=== PATIENT | female | born 1945 | race Caucasian/White ===

== ENCOUNTER 2017-08-23 15:43 | Emergency (ER) | payer MEDICARE ==
[~2017-08-23] VITALS: Ht 162.6 cm; Wt 86.2 kg
[~2017-08-23 15:43] MED LIST: ASPIRIN 81MG TA81 MG PO; BACTRIM DS 8001 TAB PO; ENABLEX7.5 MG OR; HYDROCHLOROTH12.5 M1 PO; LIPITOR10 MG PO; LORTAB 5/500 501 TAB PO; METFORMIN500 MG PO; PHENERGAN 25MG.25 M1 PO; VITAMIN C500 M1 PO
--- OUTSIDE RECORDS SUMMARY | 2017-08-23 15:47 | External Medical Summary Rpt | CCD ---
Author Author , DISHA GAUTHIER Address Unknown Phone [email or web address] Purpose Continuity of Care Document - through 2016 Problems Code Diagnosis DOS Provider Status E03.9 HYPOTHYROID ISM, UNSPECIFIED E11.9 TYPE 2 DIABETES MELLITUS WITHOUT COMPLICATIO NS
--- OUTSIDE RECORDS SUMMARY | 2017-08-23 15:47 | External Medical Summary Rpt | CCD ---
Demographics Preferred Language Icelandic Marital Status Unknown Yarsanism Affiliation Unknown Race Unknown Ethnic Group Unknown Author Author , DISHA GAUTHIER Address Unknown Phone [email or web address] Immunization Name Date Rout CVX Reac Dose Comm Prov Is Faci e tion ent ider Refu lity Give sed n Td 02-0 9 999 Hist H112 No H112 (venkat 1-19 ori lt), 99 al Info adso rmat rbed ion - Sour ce Unsp ecif ied
--- OUTSIDE RECORDS SUMMARY | 2017-08-23 15:47 | External Medical Summary Rpt | CCD ---
Author Author [facility] Organization [employer] Address Unknown Phone Unavailable Purpose Continuity of Care Document - through 2016
--- OUTSIDE RECORDS SUMMARY | 2017-08-23 15:47 | External Medical Summary Rpt | CCD ---
Author Author , DISHA GAUTHIER Address Unknown Phone .[employer] Purpose Continuity of Care Document - through 2016 Problems Code Diagnosis DOS Provider Status E03.9 HYPOTHYROID ISM, UNSPECIFIED E11.9 TYPE 2 DIABETES MELLITUS WITHOUT COMPLICATIO NS
--- OUTSIDE RECORDS SUMMARY | 2017-08-23 15:47 | External Medical Summary Rpt | CCD ---
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
--- NOTE | 2017-08-23 17:28 | Urgent Treatment Center Report ---
History of Present Issue Date/Time Seen by Provider 08/23/17 1728 Visit Reason Pt arrived:Walked Presenting Problem:PT C/O HEAD CONGESTION AND COUGH X1 WEEK Location if Accident: Onset of symptoms date/time:/ or onset unknown for:MEDICAL HX UNKNOWN Have you (or family members/close friends) recently traveled outside the [place]? N If Yes, where/when: Have you had exposure to infectious disease within the past month? TB? Other? Specify: Here w/ daughter who reports she is a [employer]ER. Cough x 2 weeks. Worse last 3-4 days. Nonprod, worse with deep breath but not exertion. No SOA, wheezing. Hx HTN but BP not monitored at home "hasn't been a reason too". No fever. Mucinex and OTC decongestants haven't helped. No known sick contacts. Would like to stay away from [facility] due to cost and has taken zpack without symptoms and does well daughter and pt both report. Source patient, family Exam Limitations no limitations ALLERGIES Coded Allergies: No Known Allergies (08/23/17) Home Medications Reported Medications Atorvastatin Calcium (Lipitor 10MG) 10 MG PO QHS Metformin HCL (Metformin) 500 MG PO DAILY Hydrochlorothiazide (Hydrochlorothiazide 12.5MG) 12.5 MG PO DAILY Darifenacin Hydrobromide (Enablex) ASPIRIN (Aspirin) 81 MG PO DAILY Ascorbic Acid (Vitamin C) 500 MG PO DAILY History Medical History General CAD? No Angina: No AR: No Hypertension? Yes Hyperlipidemia? Yes CHF? No DVT? No PE? No COPD? No Asthma? No Anemia? No GERD? No Gastric ulcers? No GI Bleed? No Hernia? No Thyroid Problems? No Hypothyroidism? No CVA? No Seizures? No Diabetes? Yes Insulin Dependent: No Insulin Pump: No Home FSBS? Yes Renal Insuffiency? No UTI? No Stones? No BPH? No GB Disease: No Nephritic Syndrome? No Asplenia? No Hepatitis? No Sickle Cell Disease? No Arthritis? No Migraines? No Cataracts? No Glaucoma? No MRSA? No HIV? No TB? No Anxiety? No Depression? No Cancer? No More? No Immunization HX DT/Tetanus 5-10 YRS Flu NEVER Pneumonia NEVER Surgical Hx Previous Surgery?Y CARDIAC STENT X 1 APPY Family History Family HX Diabetes Yes CAD No Hypertension Yes Hyperlipidemia Yes Cancer Yes TB No Social History Smoking Hx Smoker: Never Smoker Tobacco: No Alcohol Alcohol: No Review of Systems All Other Systems Reviewed and Negative Constitutional see HPI, denies chills, denies malaise Eyes denies drainage ENT nose discharge. denies: ear pain, nose congestion, throat pain. Respiratory see HPI Cardiovascular denies chest pain Gastrointestinal denies no symptoms reported Musculoskeletal denies joint pain Skin denies rash Psychiatric/Neurological denies headache Physical Exam Vital Signs Vital Signs Date Time Temp Pulse Resp B/P Pulse O2 O2 Flow FiO2 Ox Delivery Rate 08/23 1623 98.8 77 18 170/103 98 General Appearance no apparent distress, obese Ear, Nose, Throat normal pharynx, clear rhinorrhea ridge, ridge EAC w/ cerumen, sister plans to irrigate at home (no symptoms) Neck non-tender, supple Respiratory Status Yes: trachea midline, chest symmetrical, non productive cough. No: respiratory distress, use of accessory muscles, pain on inspiration, pain on expiration. Lung Sounds anterior: lungs clear. posterior: lungs clear. bilateral: lungs clear. Cardiovascular regular rate/rhythm, no peripheral edema, no murmur Neurologic alert Mental status normal mood/affect Lymphatic no adenopathy Medical Decision Making LABS/Meds/Orders Pt receiving controlled substance in ED? No Departure Departure Time of Disposition 1735 Disposition DC Home or Self Care(routine) Clinical Impression Primary Impression: Cough Secondary Impressions: High blood pressure Qualifiers: Hypertension type: unspecified Qualified Code: I10 - Essential ( primary) hypertension Condition STABLE Referrals Mike TIM,Luis Hernandes (Family) IMMEDIATELY for new or worsening symptoms, no noticeable improvement over the next 72 hours, or if BP remains >140/90 despite stopping decongestants. 911 for difficulty breathing or swallowing. Patient Instructions DI for Cough -- Adult, DI for High Blood Pressure Additional Instructions * No sign of bacterial infection but considering your age and length of illness, I have prescribed an antibiotic today. Be sure to follow up for new or worsening symptoms. * start antibiotic today. Be sure to complete entire prescription even if feeling better. * Tessalon Perles should not cause drowsiness or effect your blood pressure but not all patients react the same so monitor closely. STOP cough pills if chest becomes wet or feels productive. Start mucinex and be sure to follow up. * Monitor BP at home. STOP all decongestants. OTC Coricidin products are safer. Follow up with primary care if BP remains >140/90. Daughter is a [employer]ER and reports she can monitor at home. * Monitor Temp. Follow up if fever develops * Encourage fluids, water, gatorade, powerade, pedialyte if infant/toddler/child * warm salt water gargles * warm fluids * sore throat lozenges * sleep elevated * humidifier/vaporizer Discharge Counseling Counseled pt/family regarding diagnosis, medications/RX, home care, follow up needs Prescriptions Current Visit Scripts Azithromycin (Zithromycin (Z-MAKSIM) 250MG Tab) 250 MG PO DAILY #6 TAB TAKE TWO (2) TABLETS ON DAY 1, THEN ONE (1) TABLET DAY #2 THRU #5 Benzonatate 200 MG PO TIDP PRN cough #21 SGL at [id number]
[2017-08-23] MEDS ORDERED: BENZONATATE200 MG PO (17:40)
[2017-08-23] MEDS ORDERED: ZITHROMAX Z PA250 MG PO (17:40)
[2017-08-23 17:51] VITALS: BP 170/103
== END 2017-08-23 17:53 | disposition home or self-care (01) ==
LOC: UTC 15:43
DX: R05 Cough (principal); I10 Essential (primary) hypertension; E11.9 Type 2 diabetes mellitus without complications; E78.5 Hyperlipidemia, unspecified; Z79.84 Long term (current) use of oral hypoglycemic drugs; Z95.5 Presence of coronary angioplasty implant and graft; Z79.82 Long term (current) use of aspirin; Z79.899 Other long term (current) drug therapy